=== PATIENT | female | born 1940 | race Caucasian/White ===

== ENCOUNTER 2020-10-27 06:31 | Observation (INO) ==
--- NOTE | 2020-10-06 11:39 | PAT Medication Instructions ---
Medication Instructions Date of Service October 06, 2020 Home Medications alprazolam 0.25 mg tablet 0.25 mg PO TID PRN Macular Health Formula 1 cap PO QAM amlodipine 2.5 mg PO QPM pravastatin 40 mg PO HS acetaminophen [Tylenol Extra Strength] 1,000 mg PO Q6H PRN cholecalciferol (vitamin D3) [Vitamin D3] 125 mcg PO QAM STOP taking 2 weeks before surgery (or as soon as possible if surgery is within 2 weeks) Macular Health Formula 1 cap PO QAM DO NOT take the morning of surgery cholecalciferol (vitamin D3) [Vitamin D3] 125 mcg PO QAM Take morning of surgery With a small sip of water, OTHERWISE NOTHING TO EAT OR DRINK AFTER MIDNIGHT: alprazolam 0.25 mg tablet 0.25 mg PO TID PRN (if needed) acetaminophen [Tylenol Extra Strength] 1,000 mg PO Q6H PRN (okay to take up to 4 hours prior to surgery if needed) Take evening before surgery alprazolam 0.25 mg tablet 0.25 mg PO TID PRN (if needed) amlodipine 2.5 mg PO QPM pravastatin 40 mg PO HS acetaminophen [Tylenol Extra Strength] 1,000 mg PO Q6H PRN (if needed) Other Notes If you have any questions please call us at [phone] or [phone] or [phone] or [phone]
--- NOTE | 2020-10-10 10:57 | Anesthesiology Consultation ---
Date of Service October 10, 2020 Assessment & Plan (1) Encounter for pre-operative examination: Chart Review Chart Review: Acceptable Risk for Surgery (pending preop Covid test results and response from PCP re: CXR ) and Patient seen in Pre Admission Testing Pending response from PCP re: CXR results. Per PAT appt on 10/10/20, patient denies any large group activities. Resides in [facility]. Wears mask and socially distances. Traveled to [facility] to visit sister 09/30/20-10/01/20. Also went camping in [facility] with son and daughter in law 10/06/20-10/08/20 (has own secluded camp). Plans to go camping again but return 10/27/20. No known Covid positive contacts or Covid related symptoms. No known Covid infection in the past 90 days. Preop Covid testing scheduled 10/25/20= will await results. Educated on importance of self quarantining, social distancing and wearing mask in public both for the patient after Covid testing done. Pt fully vaccinated. Teaching & Discussion Pre-Anesthesia Teaching/Discussion Notes: Instructed NPO after midnight before surgery,except medications with 15 cc of water. Medication instructions provided according to the PAT guidelines. History Surgery Operation Date: 10/27/20 10:55 Proposed Procedures p Left Total Knee Arthroplasty - Live Sage MD Height/Weight Height: 5 ft 1.5 in Weight: 76.1 kg Allergies Allergy/AdvReac Type Severity Reaction Status Date / Time hydrochlorothiazide Allergy Unknown RASH Verified 10/06/20 08:19 Penicillins Allergy Unknown RASH Verified 10/06/20 08:19 simvastatin Allergy Unknown muscle Verified 10/06/20 08:19 aches Medications Home Medications Medication Instructions Recorded Confirmed Last Taken alprazolam 0.25 mg tablet 0.25 mg PO TID PRN tab 05/28/18 10/06/20 11/13/19 Macular Health Formula 1 cap PO QAM 11/02/19 10/06/20 11/14/19 amlodipine 2.5 mg PO QPM 11/02/19 10/06/20 11/27/19 pravastatin 40 mg PO HS 11/02/19 10/06/20 11/27/19 acetaminophen [Tylenol Extra 1,000 mg PO Q6H PRN 10/06/20 10/06/20 Unknown Strength] cholecalciferol (vitamin D3) 125 mcg PO QAM 10/06/20 10/06/20 Unknown [Vitamin D3] Past Medical History Medical History Anxiety and depression Generalized osteoarthritis GERD (gastroesophageal reflux disease) Well controlled and stable Hyperlipidemia Hypertension Exercise / Class Metabolic Activity III < 4 Walking/Shop/Light housework (no chest pain or SOB with flat surface ambulation ) Past Family History Family History Mother , age 85 CHF (congestive heart failure) Father , age 79 Prostate cancer Sister , age 89 Breast cancer Family history of diabetes mellitus Sister , age 85 / not sure cause of Family history of diabetes mellitus Sister No problems noted. Sister No problems noted. Brother , age 86 Dementia Daughter Lobular carcinoma of female breast Daughter No problems noted. Son No problems noted. Son No problems noted. Son No problems noted. Past Surgical History Surgical History H/O hernia repair surgery 2015 H/O tubal ligation surgery 1968 History of cataract surgery RIGHT History of cholecystectomy History of colonoscopy History of left cataract surgery History of right knee joint replacement surgery 2011 Status post left breast lumpectomy HX OF surgery 04-29-19 , and sentinel node lymph biopsy-NO CHEMO OR RADIATION DENIES LIMB RESTRICTION Past Anesthesia History No Hx of Anesthesia Complications and No Family Hx of Anesthesia Complications History of PONV No Hx of PONV and No Hx of Motion Sickness Social History Smoking Status: Never smoker Do You Dip or Chew Tobacco: No Hx Alcohol Use: No Hx Substance Use: No substance use type: does not use Review of Systems Patient denies chest pain, shortness of breath, dyspnea on exertion, cough, wheezing, palpitations. No hx of seizures, stroke, IL, apnea/snoring. No hx of blood clots or blood transfusions Physical Exam Vital Signs VITALS BP 119/74 P 85 TEMP 98.6 SP02 96% RESP 16 Constitutional no acute distress ENMT Mouth: no TMJ clicking Thyromental Distance: < 3.5 Finger Breadths (3.0) Mallampati Class: I Full dentures on top and bottom Neck + limited neck extension (mild ) Respiratory normal respiratory effort; no respiratory distress Auscultation: lungs clear to auscultation bilaterally; no wheezes Cardiovascular Rate/Rhythm: regular rate and regular rhythm Heart Sounds: no murmur Vessels: no carotid bruit Musculoskeletal Spine: + pain with cervical ROM (mild ) Extremities: extremities normal to inspection Psychiatric Orientation: alert Lab Results Anesthesia Preop Results Results Anesthesia Widget: WBC 4.66 K/uL (4.8-10.8) L 10/10/20 Hgb 13.8 g/dL (12.0-16.0) 10/10/20 Hct 40.6 % (37-47) 10/10/20 Plt 209 K/uL (130-400) 10/10/20 Na 139 mmol/L (136-145) 10/10/20 K 3.9 mmol/L (3.5-5.1) 10/10/20 Cl 108 mmol/L (98-107) H 10/10/20 CO2 28 mmol/L (21-32) 10/10/20 BUN 17 mg/dl (7-18) 10/10/20 Creat 0.73 mg/dl (0.6-1.2) 10/10/20 Glucose Level 117 mg/dl (70-99) H 10/10/20 PT 10.1 Seconds (9.0-12.0) 10/10/20 PTT 23.5 Seconds (21.0-31.0) 10/10/20 INR 1.0 (0.9-1.1) 10/10/20 Blood Type B Negative 10/10/20 Antibody Screen NEGATIVE 10/10/20 Testing Electrocardiogram Date: 10/10/20 Findings: + NSR @ (77bpm) Normal EKG per cardio. Chest X-Ray Date: 10/10/20 FINDINGS: No pneumothorax. No pleural effusions. The heart is normal in size. Stable linear scarlike density within the right perihilar location. Mild upper left tracheal deviation. This could be positional or related to a right thyroid goiter. Prior cholecystectomy. No focal lung consolidations to suggest pneumonia. No evidence for pulmonary edema. IMPRESSION: 1. No acute process within the chest. 2. Mild upper left tracheal deviation. This could be positional or related to a right thyroid goiter. (Spoke to patient 10/12/20- denies any trouble breathing or dysphagia)
--- NOTE | 2020-10-21 12:32 | History and Physical Report ---
DATE OF ADMISSION: 10/27/2020 CHIEF COMPLAINT: Left knee pain. HISTORY OF PRESENT ILLNESS: An 80-year-old female who presents for surgical treatment of her left kn ee. She has got a long history of knee problems and had her right knee replaced done in 2008. She h as done well from this. Over the past several years, she has developed increased pain and discomfort in her left knee. It is mostly medial pain, but some global pain. The more she is up and on it, th e more it hurts. She limps more as the day goes on. She develops some swelling intermittently as we ll. The shots have become less successful. She would like to have her left knee fixed. It is affec ting her quality of life and ability to maintain an active lifestyle. PAST MEDICAL HISTORY: Significant for, 1. Hypertension. 2. Elevated cholesterol. 3. Mild obesity with a BMI of 31.2. 4. Back pain/sciatica. 5. Breast cancer, in remission. PAST SURGICAL HISTORY: Includes, 1. Right knee replacement done on 10/07/2008. 2. Hernia repair. 3. Cholecystectomy. ALLERGIES: None. CURRENT MEDICATIONS: Include, 1. Alprazolam 0.25 mg as needed at bedtime. 2. Amlodipine 2.5 mg in the evening. 3. Aspirin 81 mg. 4. Calcium carbonate. 5. Multivitamin. 6. Pravastatin 40 mg a day. SOCIAL HISTORY: Significant for an 80-year-old female. Lives in [place]. Does not smoke. No si gnificant alcohol intake. FAMILY HISTORY: Noncontributory. REVIEW OF SYSTEMS: Negative for diabetes, neurologic problem, vascular problems or bleeding disorder s. No chest pain or shortness of breath. No history of DVT or PE. No bleeding problems. PHYSICAL EXAMINATION: GENERAL: Shows a pleasant, healthy appearing elderly female who looks in good health. HEENT: Benign. NECK: Supple, no lymphadenopathy. LUNGS: Clear to auscultation. HEART: Has a regular rate and rhythm. ABDOMEN: Soft, nontender, nondistended. EXTREMITIES: Grossly neurovascularly intact except as follows: Examination of the left knee reveals the patient ambulates independently. She has got varus alignment to her knee with a bit of a varus thrust with weightbearing. She has got bony hypertrophy medially. She is tender over the medial marialuisa nt line. Small knee effusion. Range of motion is 5 degrees short of full extension to 120 degrees o f flexion. There is no instability. No pain with hip motion. X-RAYS: X-rays of the left knee are reviewed. It shows advanced left knee DJD. She has got complet e loss of her medial joint space. She has subchondral sclerosis. She has got osteophytes medially. The right knee replacement looks to be in good position without signs of problems. IMPRESSION: An 80-year-old female, 12 years out from right knee replacement with multiple other medi rae comorbidities including hypertension, elevated cholesterol, mild obesity, back pain/sciatica, samm ast cancer, in remission, with advanced left knee degenerative joint disease. She has failed conserv ative treatment and would like to have her left knee replaced. PLAN: We will take her to the operating room and do a left total knee replacement. The risks and be nefits of this procedure were explained to the patient including but not limited to DVT, PE, , i nfection, neurological injury, vascular injury, bleeding problem, pain, limited range of motion, stif fness, incomplete relief of symptoms, persistent pain, etc. The patient understands and desires to p roceed. Informed consent was obtained. She is planning to be discharged to home using [facility] program. Job ID: [id number]
[~2020-10-27 06:31] MED LIST: ACETAMINOPHEN 500 MG TAB PO SCH; BUPIVACAINE 0.5 % 5 MG/1 ML PF 10ML VIAL ONE; BUPIVACAINE LIPOSOME/PF 266 MG, BUPIVACAINE/EPINEPHRINE 50 ML, SODIUM CHLORIDE 0.9% 30 ... INFIL SCH; FAMOTIDINE 20 MG TAB PO SCH; GABAPENTIN 300 MG CAP PO SCH; LR 500ML BOLUS, THEN 15ML/HR IV SCH; LR 60ML/HR IV SCH; ROPIVACAINE 0.5% 5 MG/ML 30 ML VIAL ONE; TRANEXAMIC ACID 1,000 MG **IV Intra-op IV SCH; ceFAZolin 2000MG 2,000 MG/15 ML SYR IV SCH
--- NOTE | 2020-10-27 06:55 | History & Physical Bridge Note ---
Date of Service October 27, 2020 History & Physical Bridge Note I have examined the patient, reviewed the History & Physical and in the interval since the performance of the History & Physical I have noted the following changes of clinical significance: no changes noted
[2020-10-27] MEDS ORDERED: LIDOCAINE 2% 2 ML VIAL/AMP(20MG/ML) INFIL ONE (07:58)
[2020-10-27] MEDS ORDERED: PROPOFOL IV EMULSION 10 MG/ML 20 ML VIAL IV ONE (07:58)
[2020-10-27] MEDS ORDERED: MIDAZOLAM HCL 1 MG/ML 2ML VIAL ONE (07:59)
[2020-10-27] MEDS ORDERED: fentaNYL citrate 100 MCG/2 ML VIAL ONE (07:59)
[2020-10-27] MEDS ORDERED: ONDANSETRON INJ 2 MG/ML 2 ML VIAL IV PRN ×2 (08:43→12:59)
[2020-10-27] MEDS ORDERED: ePHEDrine sulfate 50 MG/ML AMP IV PRN (08:43)
[2020-10-27] MEDS ORDERED: ATROPINE SULFATE 0.1 MG/ML 10ML SYR IV PRN (08:43)
[2020-10-27] MEDS ORDERED: fentaNYL citrate 100 MCG/2 ML VIAL IV PRN (08:43)
[2020-10-27] MEDS ORDERED: HYDROmorphone INJ 2 MG/ML SYR/VIAL IV PRN (08:43)
[2020-10-27] MEDS ORDERED: SODIUM CHLORIDE 0.9% PF 50 ML VIAL ONE (08:54)
[2020-10-27] MEDS ORDERED: BUPIVACAINE LIPOSOME 1.3% 266 MG/20 ML VIAL ONE (08:54)
[2020-10-27] MEDS ORDERED: EPINEPHrine INJ 1 MG/ML AMP ONE (08:55)
[2020-10-27] MEDS ORDERED: BUPIVACAINE 0.25% 30 ML VIAL ONE ×2 (08:55→09:11)
--- NOTE | 2020-10-27 11:07 | Operative Report ---
Post Operative Report Pre & Post Diagnosis Operation Date: 10/27/20 08:50 Pre-Op Diagnosis: Left Knee Osteoarthritis Post-Op Diagnosis: Left Knee Osteoarthritis I identified the patient and participated in the time-out.: Yes Procedure Operation Date: 10/27/20 08:50 Actual Procedures p Left Total Knee Arthroplasty(Left) - Live Sage MD Surgeon Live Sage MD [employer] Chemist FATOUMATA Nogueira Estimated Blood Loss 50 Findings Consistent with Post-Op Diagnosis Operative findings were advanced left knee DJD. She had extensive grade 4 [id number] disease of the medial and patellofemoral compartments. She had some spotty grade 4 changes of the lateral compartment. Fluids 600 cc Specimens Left knee sent for pathology. Drains None Anesthesia Type Spinal MAC Complications none Disposition Accompanied Patient To Recovery: No Indications Patient is an 80-year-old very active female whose had a long history of knee problems. She underwent a right knee replacement about 12 years ago. Over the past several years she developed increased pain discomfort in her left left knee. She failed conservative measures and elected proceed with surgical treatment. Description of Procedure Operative implants consist of: 1. Biomet Vanguard size 62.5 left posterior stabilized femoral component. 2. Biomet size 67 tibial tray. 3. 10 mm posterior stabilized polyethylene insert. 4. 28 x 8 all polypatella. The patient was taken the operating, identified, placed on the operating table supine position protectors were properly padded IV antibiotics tried by anesthesia team. Spinal anesthetic and abductor canal block had been provided in the holding area. Garcia catheter was placed in sterile fashion. A left thigh turn was then placed in the left lower extremities and prepped and draped in usual sterile fashion. The left leg was elevated exsanguinated with use of an Esmarch and turns placed at 3 mmHg. An anterior approach left knee was then performed through longitudinal incision centered over the patella. Sharp dissection was carried through subcutaneous this down the extensor mechanism. A medial parapatellar arthrotomy incision was made. Some subperiosteal dissection was carried out medially. The fat pad was resected from each patella tendon. The lateral patellofemoral ligament was released. Patella subluxated laterally and the knee was flexed. The osteophytes taken off distal femur. The ACL and PCL were then released from the distal femur and the tibia subluxated anteriorly. The external tibial alignment jig was then placed in the interface the tibia and adjusted 14 mm medially. Proximal tibial cut was made remove about a millimeter bone from most deficient aspect medial till plateau. Some osteophytes were taken off medial and posterior medially. The tibia was then sized to a size 67. Attention drawn the femur. The distal femur was then with a sharp drill. Intramedullary canal was suction. A left 5 degree valgus cutting guide was placed. The distal femoral cutting block was pinned in place. Distal femoral cut was made to take an additional 3 mm of bone off distal femur. The femur was then sized to a size 62.5. We did downsize this almost an entire size due to the narrow medial and lateral dimensions. The AP cutting block was pinned parallel to the epicondylar axis which was 6 degrees of external rotation. Anterior cut, anterior chamfer, posterior cut, posterior chamfer cuts were made. Box cutting guide was placed in a just slightly laterally. The box cut was made. The knee was flexed. The remnants of the medial and lateral menisci were excised. The osteophyte taken off the posterior aspect the femur. Trial femoral component was placed. The tibial tray was pinned in maximum external rotation and the drill and stem punch used to create defect in proximal tibia for the tibial tray. The knee was then trialed with a 10 mm insert fit most appropriately. Attention drawn the patella. The patella was cleaned of all soft tissues. Patella thickness measured 19 mm in thickness was cut down to 12. Was sized to a size 28 patella. The lug holes were drilled for the 28 patella. The lateral osteophyte was removed. Patella button was placed. Knee was taken through range of motion patella tracked nicely with no thumbs test. Attention turned to placing permanent components. All trial components were removed. Bone plug was placed in the distal femur limit blood loss. Double batch Palacos G cement was mixed. A Biomet Vanguard size 62.5 left posterior stabilized femoral component, size 67 tibial tray, a 10 mm posterior stabilized polyethylene insert, and a 28 x 8 all polypatella was then cemented in place. The knee was brought out into full extension until cement hardened. Final cement check was then performed. Pericapsular tissues were injected with total 100 cc of combination of 20 cc of Exparel, 30 cc normal saline, 50 cc of quarter percent Marcaine with epinephrine. Patient did receive 1 g tranexamic acid. The tourniquet was then let down for total tourniquet time 58 minutes. Hemostasis assured use electrocautery. The wounds once again irrigated to the extensor mechanism closed with combination 1 PDS suture #1 Vicryl suture in a [id number] fashion. Extensor mechanism was checked and found to be intact with subcutaneous tissue then closed with 2 Dexon suture in a buried interrupted fashion skin was closed skin angelina. Leg was then cleaned and dried a sterile dressing composed Xeroform, 4 x 4's, sterile cast padding, Harrison bandage were applied. Patient then transferred to the recovery room in stable condition. Patient tolerated procedure well and there were no complications. Giovani Nogueira, my physician dental assistant, was present for the entire procedure. His assistance was essential and required for appropriate patient positioning, prepping and draping, surgical exposure, performing the technical details of the operation, placement the implants, closure of the wound, and placement of the sterile bandage. I attest to the content of the Intraoperative Record and any orders documented therein. Any exceptions are noted below.
--- NOTE | 2020-10-27 11:33 | XRay Report ---
XR knee LT 1 or 2V routine CLINICAL HISTORY: Surgical Post Op COMPARISON: None. DISCUSSION: There are postsurgical changes of a total left knee arthroplasty and patellar resurfacing . The femoral and tibial components appear well seated. There is gas present within the soft tissues consistent with recent surgery. There are overlying anterior skin angelina. IMPRESSION: Postsurgical changes of a total left knee arthroplasty. ACT 112: Negative or not required by law. Electronically signed by: Chintan Mehta M.D. 10/27/2020 11:32 AM
--- NOTE | 2020-10-27 12:32 | Anesthesiology Progress Note ---
Date of Service October 27, 2020 Anesthesia Post Procedure Vital Signs Vital Signs: Temp Pulse Pulse Resp BP BP Pulse Ox 10/27/20 12:25 36.6 C 74 16 147/77 H 98 10/27/20 11:30 36.8 C 70 18 141/69 H 99 10/27/20 11:20 70 19 147/72 H 99 10/27/20 11:10 70 15 137/67 98 10/27/20 11:01 36.1 C L 78 24 122/67 99 10/27/20 07:49 85 20 168/82 H 97 10/27/20 07:08 36.6 C 89 20 169/81 H 95 Transfer of Care Handoff Completed per policy Notes Mental Status: alert / awake / arousable and participated in evaluation Patient Amnestic to Procedure: Yes Nausea / Vomiting: adequately controlled Pain: adequately controlled Airway Patency, RR, SpO2: stable & adequate BP & HR: stable & adequate Hydration State: stable & adequate Anesthetic Complications: no major complications apparent
[2020-10-27] MEDS ORDERED: bisacodyL 10 MG SUPP PR PRN (12:59)
[2020-10-27] MEDS ORDERED: HYDROmorphone INJ 0.5 MG/0.5 ML SYR IV PRN (12:59)
[2020-10-27] MEDS ORDERED: MAGNESIUM HYDROXIDE SUSP 30 ML UDC PO PRN (12:59)
[2020-10-27] MEDS ORDERED: METOCLOPRAMIDE HCL INJ 5 MG/ML 2 ML VIAL IV PRN (12:59)
[2020-10-27] MEDS ORDERED: ALPRAZolam 0.25 MG TABLET PO PRN (12:59)
[2020-10-27] MEDS ORDERED: NALOXONE HCL 0.4 MG/1 ML VIAL/CARP IV PRN (12:59)
[2020-10-27] MEDS ORDERED: ALUMINUM/MAGNESIUM SUSP 30 ML UDC PO PRN (12:59)
[2020-10-27] MEDS ORDERED: traMADol HCL 50 MG TABLET PO PRN (12:59)
[2020-10-27] MEDS: SODIUM CHLORIDE 0.9% 1000ML 1,000 ML IV SCH (15:07)
[2020-10-27] MEDS: ACETAMINOPHEN 500 MG TAB PO SCH ×2 (15:22→21:25)
[2020-10-27] MEDS: KETOROLAC TROMETHAMINE 15 MG/ML VIAL IV SCH ×2 (15:22→21:25)
[2020-10-27] MEDS: ceFAZolin 1000MG 1,000 MG/7.5 ML SYR IV SCH (16:54)
[2020-10-27] MEDS ORDERED: TRANEXAMIC ACID / 0.7% NACL 1,000 MG/100 ML BAG IV SCH (17:00)
[2020-10-27] MEDS: ASCORBIC ACID 500 MG TAB PO SCH (18:27)
[2020-10-27] MEDS ORDERED: PRAVASTATIN SOD 40 MG TAB PO SCH (21:00)
[2020-10-27] MEDS ORDERED: amLODIPine BESYLATE 5 MG TAB PO SCH (21:00)
[2020-10-27] MEDS ORDERED: SENNA 8.6 MG TAB PO SCH (21:00)
[2020-10-27] MEDS: ASPIRIN 81 MG ECTAB PO SCH (21:25)
[2020-10-27] MEDS: DOCUSATE SODIUM 100 MG CAP PO SCH (21:27)
[2020-10-28] MEDS: SODIUM CHLORIDE 0.9% 1000ML 1,000 ML IV SCH (01:10)
[2020-10-28] MEDS: ceFAZolin 1000MG 1,000 MG/7.5 ML SYR IV SCH (01:10)
[2020-10-28] MEDS: KETOROLAC TROMETHAMINE 15 MG/ML VIAL IV SCH ×2 (04:59→09:54)
[2020-10-28] MEDS: ACETAMINOPHEN 500 MG TAB PO SCH (05:00)
[2020-10-28 06:08] LABS: Hematocrit (blood only) 35.9 % (37-47); Hemoglobin 12.4 g/dL (12.0-16.0); Mean Corpuscular Hemoglobin 30.2 pg (25-34); Mean Corpuscular Hgb Conc 34.5 g/dL (32-36); Mean Corpuscular Volume 87.3 fL (80-100); Mean Platelet Volume 10.1 fL (7.4-10.4); Platelet Count 169 K/uL (130-400); RDW Coefficient of Variation 13.4 % (11.5-14.5); RDW Standard Deviation 42.9 fL (36.4-46.3); Red Blood Count 4.11 M/uL (4.2-5.4); White Blood Count 6.96 K/uL (4.8-10.8)
[2020-10-28 06:43] LABS: BUN Creatinine Ratio 24.5 (10-20); Calcium 8.5 mg/dl (8.5-10.1); Creatinine Clr Calc Pharmacy 53.2 ml/min; Est GFR (African American) 84.7 ml/min; Est GFR (Non-African American) 73.1 ml/min; Potassium 3.7 mmol/L (3.5-5.1)
[2020-10-28] MEDS ORDERED: dexAMETHasone 10 MG in SYRINGE 0 ML IV SCH (08:00)
[2020-10-28] MEDS: ASCORBIC ACID 500 MG TAB PO SCH (08:35)
[2020-10-28] MEDS ORDERED: MULTIVITAMIN TAB PO SCH (09:00)
[2020-10-28] MEDS ORDERED: CHOLECALCIFEROL 1,000 UNITS 25 MCG TAB PO SCH (09:00)
[2020-10-28] MEDS ORDERED: NON-FORMULARY MEDICATION (Mv-Mn-Lutein-Zeax-Bilber-Hb277 [Macular Health Formula] 5-1-7.5 PO SCH (09:00)
--- NOTE | 2020-10-28 09:18 | Progress Notes ---
DATE OF SERVICE: 10/28/2020. SUBJECTIVE: An 80-year-old female postop day 1 from the left knee replacement. She is doing pretty well. Pain is controlled. She had a pretty good night. No chest pain or shortness of breath. Not feeling dizzy or lightheaded. OBJECTIVE: VITAL SIGNS: Temperature 37.1. Vital signs stable. PHYSICAL EXAMINATION: GENERAL: Shows a pleasant elderly female. She is sitting up in bed and was talking on the phone thi s morning. EXTREMITIES: Examination of the left leg reveals the leg to be well aligned. Dressings clean, dry a nd intact. She can dorsiflex and plantarflex her foot appropriately. She can do a straight leg rais e. LABORATORY DATA: Hemoglobin 12.4. Hematocrit 35.9. Electrolytes are stable. ASSESSMENT: An 80-year-old female postop day 1 from left knee replacement, doing pretty well. Pain is controlled. She is neurologically intact. PLAN: 1. DVT prophylaxis include thigh-high TEDs, SCDs, and aspirin twice a day. 2. PT, OT, weightbear as tolerated. Left total knee protocol. 3. Pain control, doing well with current pain regimen. 4. Disposition: Plan to discharge to home with some home health. Her daughter is going to be there to assist her in her care at home. Job ID: [id number]
[2020-10-28] MEDS: ASPIRIN 81 MG ECTAB PO SCH (09:53)
[2020-10-28] MEDS: DOCUSATE SODIUM 100 MG CAP PO SCH (09:53)
--- NOTE | 2020-10-31 06:38 | Discharge Summary ---
Date of Service October 31, 2020 Discharge Data Procedures Performed Operation Date: 10/27/20 08:50 Actual Procedures p Left Total Knee Arthroplasty(Left) - Live Sage MD Hospital Course (1) Status post total left knee replacement: This is a 80 year old patient admitted on 10/27/20 and underwent total knee arthroplasty. She tolerated the procedure well and there were no complications. Transferred to the PACU post op and later to the orthopedic floor for further care. She was given ancef for antibiotic prophylaxis. SHe was also given MEGHAN stockings, SCDs, and aspirin for DVT prophylaxis. Hemoglobin, hematocrit, and vital signs were monitored during her hospital stay and remained stable. Did not require any blood transfusions. There were no complications during her hospital stay. By post op day #1 the patient was tolerating a regular diet, pain was reasonably controlled with oral pain medicine, and she was participating in physical therapy. On post op day #1 the patient was discharged home and set up with home health care. She was given printed discharge instructions including prescriptions for extra strength tylenol, aspirin, and tramadol. Continue physical therapy, weight bearing as tolerated. Continue MEGHAN stockings. Follow up approximately 2 weeks post op or sooner if there are problems or concerns. Coding Level of Care Code None Diagnoses Status post total left knee replacement Z96.652
== END 2020-10-28 11:21 | disposition home health service (06) ==
LOC: ASU 06:31 → 3N 06:31